=== PATIENT | male | born 1990 | race African-American/Black ===

== ENCOUNTER 2019-08-11 04:14 | Emergency (ER) | payer SELFPAY ==
[~2019-08-11] VITALS: Ht 167.6 cm; Wt 102.0 kg
[2019-08-11 04:43] LABS: BASO % 1 % (0-3); EOS # 0.1 x10^3/uL (0.0-0.7); EOS % 2 % (0-3); HEMATOCRIT 47.1 % (39.0-53.0); HEMOGLOBIN 15.8 g/dL (13.0-17.5); LYMPH # 2.6 x10^3/uL (1.0-4.8); LYMPH % 33 % (24-48); MEAN CORPUSCULAR HEMOGLOBIN 29 pg (25-35); MEAN CORPUSCULAR HGB CONC 34 g/dL (31-37); MEAN CORPUSCULAR VOLUME 87 fL (79-100); MONO # 0.5 x10^3/uL (0.0-1.1); MONO % 6 % (0-9); NEUT # 4.6 x10^3/uL (1.8-7.7); NEUT % 59 % (31-73); PLATELET COUNT 129 x10^3/uL (140-400); RED BLOOD COUNT 5.38 x10^6/uL (4.30-5.70); RED CELL DISTRIBUTION WIDTH 13.2 % (11.5-14.5); WHITE BLOOD COUNT 7.8 x10^3/uL (4.0-11.0)
[2019-08-11 04:49] LABS: CREATININE 1.1 mg/dL (0.7-1.3); GFR 96.4; POTASSIUM 3.8 mmol/L (3.5-5.1)
[2019-08-11 04:55] LABS: ALBUMIN 3.9 g/dL (3.4-5.0); TOTAL BILIRUBIN 0.4 mg/dL (0.2-1.0)
[2019-08-11] MEDS ORDERED: CONTRAST GIVEN. MC PRN (05:15)
[2019-08-11] MEDS ORDERED: IOHEXOL 300 MG/ML 100ML VIAL. IV ONE (05:15)
--- NOTE | 2019-08-11 05:22 | RAD ---
CT abdomen and pelvis with contrast: Reason for examination: Abdominal pain: Helical images were obtained through the abdomen and pelvis administration of 75 cc Omnipaque 300. Reconstruction was performed in sagittal and coronal planes. Exposure: One or more of the following individualized dose reduction techniques were utilized for this examination: 1. Automated exposure control 2. Adjustment of the mA and/or kV according to patient size 3. Use of iterative reconstruction technique. The lung bases are clear. The heart size is normal with no pericardial effusion. No abnormality seen at the liver, spleen, adrenal glands, gallbladder or pancreas. The stomach shows no wall thickening but contains a large amount of gastric content. No abnormality seen at the duodenum. The small intestinal tract shows no abnormal dilatation or wall thickening and no obstruction is seen. No abnormality seen at the appendix. The colon shows no diverticulosis or diverticulitis or colitis. The kidneys show a small 1.5 cm cystic lesion at the midpole of the right kidney. There are no renal calculi, hydronephrosis or evidence of obstructive uropathy. No abnormality seen at the bladder, prostate gland or seminal vesicles. No free fluid or free air seen in the abdomen or pelvis. No acute bony abnormalities are seen. IMPRESSION: 1.5 cm cyst at the midpole of the right kidney. No follow-up imaging is recommended per consensus recommendations based on imaging criteria. No focal abnormalities are seen in the abdomen or pelvis. Electronically signed by: Kristin Malhotra MD (08/11/2019 5:19 AM) [id number]
[2019-08-11] MEDS ORDERED: KETOROLAC 30 MG/ML VIAL. IVP ONE (05:30)
--- NOTE | 2019-08-11 05:52 | PHYS DOC ---
Past Medical History Past Medical History: No Pertinent History (HELEN CHAPA DO) Past Surgical History: No Surgical History (HELEN CHAPA DO) Smoking Status: Never Smoker Alcohol Use: None (HELEN CHAPA DO) Adult General Chief Complaint Chief Complaint: ABDOMINAL PAIN HPI HPI 30-year-old male with no past medical or past surgical history presents with a chief complaint of abdominal pain. Patient states abdominal pain started 3 days ago initially left upper epigastric region but now right upper quadrant epigastric region. Patient has associated nausea and vomiting and diarrhea. Patient states over the last few days this changed to a liquid diet. Patient states tonight he ate a cheeseburger. (HELEN CHAPA DO) Review of Systems Review of Systems Constitutional: Denies fever or chills [] Eyes: Denies change in visual acuity, redness, or eye pain [] HENT: Denies nasal congestion or sore throat [] Respiratory: Denies cough or shortness of breath [] Cardiovascular: No additional information not addressed in HPI [] GI: No abdominal pain positive nausea positive vomiting positive diarrhea : Denies dysuria or hematuria [] Musculoskeletal: Denies back pain or joint pain [] Integument: Denies rash or skin lesions [] Neurologic: Denies headache, focal weakness or sensory changes [] Endocrine: Denies polyuria or polydipsia [] All other systems were reviewed and found to be within normal limits, except as documented in this note. (HELEN CHAPA DO) Current Medications Current Medications Current Medications Medications (Trade) Dose Ordered Sig/[place] Start Time Stop Time Status Last Admin Dose Admin Info (CONTRAST GIVEN -- Rx MONITORING) 1 each PRN DAILY PRN 08/11/19 05:15 08/13/19 05:14 Iohexol (Omnipaque 300 Mg/ml) 75 ml 1X ONCE 08/11/19 05:15 08/11/19 05:16 DC 08/11/19 05:04 75 ML Ketorolac Tromethamine (Toradol 30mg Vial) 30 mg 1X ONCE 08/11/19 05:30 08/11/19 05:36 DC 08/11/19 05:32 30 MG (BENNY YUSUF MD) Allergies Allergies Allergies Coded Allergies Type Severity Reaction Last Updated Verified No Known Drug Allergies 08/11/19 No (BENNY YUSUF MD) Physical Exam Physical Exam Constitutional: Well developed, well nourished, no acute distress, non-toxic appearance. [] HENT: Normocephalic, atraumatic, bilateral external ears normal, oropharynx moist, no oral exudates, nose normal. [] Eyes: PERRLA, EOMI, conjunctiva normal, no discharge. [] Neck: Normal range of motion, no tenderness, supple, no stridor. [] Cardiovascular:Heart rate regular rhythm, no murmur [] Lungs & Thorax: Bilateral breath sounds clear to auscultation [] Abdomen: Tender to palpation right upper quadrant Skin: Warm, dry, no erythema, no rash. [] Back: No tenderness, no CVA tenderness. [] Extremities: No tenderness, no cyanosis, no clubbing, ROM intact, no edema. [] Neurologic: Alert and oriented X 3, normal motor function, normal sensory function, no focal deficits noted. [] Psychologic: Affect normal, judgement normal, mood normal. [] (HELEN CHAPA DO) Current Patient Data Vital Signs Vital Signs Date Time Temp Pulse Resp B/P (MAP) Pulse Ox O2 Delivery O2 Flow Rate FiO2 08/11/19 04:38 97.8 94 16 133/74 (93) 97 97.8 (BENNY YUSUF MD) Lab Values Laboratory Tests Test 08/11/19 04:34 White Blood Count 7.8 x10^3/uL (4.0-11.0) Red Blood Count 5.38 x10^6/uL (4.30-5.70) Hemoglobin 15.8 g/dL (13.0-17.5) Hematocrit 47.1 % (39.0-53.0) Mean Corpuscular Volume 87 fL (79-100) Mean Corpuscular Hemoglobin 29 pg (25-35) Mean Corpuscular Hemoglobin Concent 34 g/dL (31-37) Red Cell Distribution Width 13.2 % (11.5-14.5) Platelet Count 129 x10^3/uL (140-400) L Neutrophils (%) (Auto) 59 % (31-73) Lymphocytes (%) (Auto) 33 % (24-48) Monocytes (%) (Auto) 6 % (0-9) Eosinophils (%) (Auto) 2 % (0-3) Basophils (%) (Auto) 1 % (0-3) Neutrophils # (Auto) 4.6 x10^3/uL (1.8-7.7) Lymphocytes # (Auto) 2.6 x10^3/uL (1.0-4.8) Monocytes # (Auto) 0.5 x10^3/uL (0.0-1.1) Eosinophils # (Auto) 0.1 x10^3/uL (0.0-0.7) Basophils # (Auto) 0.0 x10^3/uL (0.0-0.2) Sodium Level 142 mmol/L (136-145) Potassium Level 3.8 mmol/L (3.5-5.1) Chloride Level 103 mmol/L (98-107) Carbon Dioxide Level 30 mmol/L (21-32) Anion Gap 9 (6-14) Blood Urea Nitrogen 12 mg/dL (8-26) Creatinine 1.1 mg/dL (0.7-1.3) Estimated GFR (Cockcroft-Gault) 96.4 BUN/Creatinine Ratio 11 (6-20) Glucose Level 89 mg/dL (70-99) Calcium Level 9.0 mg/dL (8.5-10.1) Total Bilirubin 0.4 mg/dL (0.2-1.0) Aspartate Amino Transferase (AST) 25 U/L (15-37) Alanine Aminotransferase (ALT) 41 U/L (16-63) Alkaline Phosphatase 58 U/L (46-116) Total Protein 8.0 g/dL (6.4-8.2) Albumin 3.9 g/dL (3.4-5.0) Albumin/Globulin Ratio 1.0 (1.0-1.7) Lipase 81 U/L (73-393) Laboratory Tests 08/11/19 04:34 Laboratory Tests 08/11/19 04:34 (BENNY YUSUF MD) EKG EKG [] (HELEN CHAPA DO) Radiology/Procedures Radiology/Procedures [] (HELEN CHAPA DO) Course & Med Decision Making Course & Med Decision Making Pertinent Labs and Imaging studies reviewed. (See chart for details) []Was evaluated for chief complaint. Workup consisted of laboratory analysis and radiologic imaging. Results reviewed and discussed with patient. Patient had normal labs and a CT which showed right renal cyst. Patient was treated with Toradol. US pending at time of shift change. (HELEN CHAPA DO) Course & Med Decision Making Staff Physician Addendum: I was working in the ER during the course of this patient's visit. I was available for consultation as needed, but I was not directly involved in the care of this patient. (BENNY YUSUF MD) Dragon Disclaimer Dragon Disclaimer This electronic medical record was generated, in whole or in part, using a voice recognition dictation system. (HELEN CHAPA DO) Departure Departure Impression: Primary Impression: Abdominal pain Condition: STABLE Referrals: NO PCP (PCP) Patient Instructions: Abdominal Pain, Viral Gastroenteritis Problem Qualifiers Primary Impression: Abdominal pain Abdominal location: upper abdomen, unspecified Qualified Codes: R10.10 - Upper abdominal pain, unspecified HELEN CHAPA DO Aug 11, 2019 05:52 BENNY YUSUF MD Aug 11, 2019 06:38
--- NOTE | 2019-08-11 06:09 | RAD ---
Abdominal ultrasound Limited: Reason for examination: Right upper quadrant abdominal pain. The pancreas is not visualized due to bowel gas. The abdominal aorta is obscured by bowel gas. No abnormality seen at the inferior vena cava. The liver is normal in size at 15 cm and shows no focal abnormality. Gallbladder shows no cholelithiasis, sludge or wall thickening. Common bile duct is normal in caliber at 2 mm. Right kidney measures 11 x 5.9 x 5.5 cm in greatest dimension. There is a 1.4 cm parapelvic cyst at the midpole. IMPRESSION: 1.4 cm parapelvic cyst at the midpole the right kidney. No other focal abnormalities evident. Electronically signed by: Kristin Malhotra MD (08/11/2019 6:06 AM) [id number]
[2019-08-11 06:41] VITALS: BP 138/74
== END 2019-08-11 06:32 | disposition home or self-care (01) ==
LOC: ER 04:14
DX: R10.11 Right upper quadrant pain (principal); R11.2 Nausea with vomiting, unspecified; R19.7 Diarrhea, unspecified
CPT/HCPCS: 36415; 74177; 76705; 80053; 83690; 85025; 96374; 99285; J1885; Q9967

== ENCOUNTER 2021-06-05 10:42 | Emergency (ER) | payer SELFPAY | END 2021-06-05 12:20 | disposition left against medical advice (07) | LOC: ER 10:42 | DX: H57.89 Other specified disorders of eye and adnexa (principal); Z53.21 Procedure and treatment not carried out due to patient leaving prior to being seen by health care provider ==